=== PATIENT | female | born 1995 | race Caucasian/White ===

== ENCOUNTER 2016-08-27 13:21 | Outpatient (CLI) | payer OTHER | END 2016-08-27 13:22 | disposition home or self-care (01) | LOC: MADLABBHPM 13:21 | PROVIDERS: ATTEND Family Medicine | DX: Z34.83 Encounter for supervision of other normal pregnancy, third trimester (principal) | CPT/HCPCS: 36415; 87081 ==

== ENCOUNTER 2017-10-16 05:58 | Emergency (ER) | payer OTHER, SELFPAY ==
[2017-10-16 06:41] LABS: Bilirubin Negative (Negative); Blood, Urine Negative (Negative); Clarity Clear (Clear); Glucose, Urine (Dipstick) Negative (Negative); Leukocyte Trace (Negative); Nitrite Negative (Negative); Protein, Urine (Dipstick) Trace mg/dL (Neg-Trace); Urobilinogen 0.2 mg/dL (0.2-1.0)
[2017-10-16] MEDS ORDERED: traMADol HCl 50 MG TAB ONE (06:41)
[2017-10-16] MEDS ORDERED: Ketorolac Tromethamine 60 MG/2 ML VIAL ONE (06:42)
[2017-10-16 06:49] LABS: Amphetamine Not Detected (NotDetected); Barbiturates Screen Not Detected (NotDetected); Benzodiazepine Screen Not Detected (NotDetected); Cocaine Metabolite Screen Not Detected (NotDetected); Medtox Control Line Valid? VALID (VALID); Methadone Not Detected (NotDetected); Methamphetamine Not Detected (NotDetected); Opiate Screen Not Detected (NotDetected); Oxycodone Screen Not Detected (NotDetected); Phencyclidine (PCP) Not Detected (NotDetected); THC/Cannabinoid Screen Not Detected (NotDetected); Tricyclic Screen Not Detected (NotDetected)
[2017-10-16 06:51] LABS: RBC/HPF 0-3 HPF (0-3); Squamous Epithelial 0-3 HPF (0-3); WBC/HPF 0-3 HPF (0-3)
[2017-10-16 06:52] LABS: Bacteria/HPF Rare-Few HPF (None Seen)
--- NOTE | 2017-10-16 13:10 | CT ---
PRELIMINARY REPORT/[facility]/EMERGENTY AFTER-HOURS PROCEDURE CT Cervical Spine Without Intravenous Contrast EXAM DATE/TIME: Exam ordered 10/16/2017 6:33 AM CLINICAL HISTORY: 22 years old, female; Pain; Neck pain TECHNIQUE: Axial computed tomography images of the cervical spine without intravenous contrast. Coronal and sagi ttal reformatted images were created and reviewed. COMPARISON: No relevant prior studies available. FINDINGS: Vertebrae: No acute cervical spine fracture is identified. There is a reversal of the normal lordosis , related to positioning or spasm. Discs/spinal canal/neural foramina: The vertebral foramina are patent without gross evidence of fract ure. Typical artifact is present which limits evaluation of the spinal canal. No spinal canal stenosi s. Soft tissues: Normal. Lung apices: Unremarkable as visualized. IMPRESSION: No acute cervical spine fracture is demonstrated. Thank you for allowing us to participate in the care of your patient. Dictated and Authenticated by: Farhat Rdz MD 10/16/2017 6:58 AM Central Time ([place] & [place]) FINAL REPORT EMERGENT AFTER HOURS NONCONTRAST CT CERVICAL SPINE: DATE: 10/16/17. HISTORY: Neck pain. TECHNIQUE: Contiguous axial CT images are obtained through the cervical spine from the skull base to the level o f the T1 vertebral body. Sagittal and coronal reformatted images are provided. IMPRESSION: 1. No fracture or subluxation is seen involving the cervical spine. 2. Prevertebral soft tissues are within normal limits. 3. Straightening of the normal cervical lordotic curvature. 4. Findings are in agreement with the preliminary report by [facility]. POS: [facility]
--- NOTE | 2017-10-16 13:11 | CT ---
PRELIMINARY REPORT/[facility]/EMERGENTY AFTER-HOURS PROCEDURE CT Lumbar Spine Without Intravenous Contrast EXAM DATE/TIME: Exam ordered 10/16/2017 6:35 AM CLINICAL HISTORY: 22 years old, female; Pain; Low back pain TECHNIQUE: Axial computed tomography images of the lumbar spine without intravenous contrast. Coronal and sagitt al reformatted images were created and reviewed. COMPARISON: No relevant prior studies available. FINDINGS: Vertebrae: Normal. No acute fracture. Discs/spinal canal/neural foramina: No acute findings. No spinal canal stenosis. Soft tissues: Normal. IMPRESSION: Normal lumbar spine CT. Thank you for allowing us to participate in the care of your patient. Dictated and Authenticated by: Farhat Rdz MD 10/16/2017 7:03 AM Central Time ([place] & [place]) FINAL REPORT EMERGENT AFTER HOURS NONCONTRAST CT LUMBAR SPINE: DATE: 10/16/17. HISTORY: Chronic neck and back pain. Low back pain. IMPRESSION: 1. No fracture or subluxation is seen involving the lumbar spine. Vertebral body heights are within normal limits. 2. Central spinal canal and neural foramen are patent without disk bulge or disk herniation seen. 3. Findings are in agreement with the preliminary report by [facility]. POS: [facility]
== END 2017-10-16 08:27 | disposition home or self-care (01) ==
LOC: MADERS 05:58
DX: S16.1XXA Strain of muscle, fascia and tendon at neck level, initial encounter (principal); S39.012A Strain of muscle, fascia and tendon of lower back, initial encounter; S29.012A Strain of muscle and tendon of back wall of thorax, initial encounter; F32.9 Major depressive disorder, single episode, unspecified; F17.210 Nicotine dependence, cigarettes, uncomplicated; X50.0XXA Overexertion from strenuous movement or load, initial encounter; Y93.G1 Activity, food preparation and clean up
CPT/HCPCS: 72125; 72131; 80306; 81003; 81015; 96372; J1885

== ENCOUNTER 2020-04-04 14:31 | Emergency (ER) | payer SELFPAY ==
[2020-04-04] MEDS ORDERED: Lidocaine 1% w/Epinephrine 1:100K 20 ML VIAL ONE (15:06)
== END 2020-04-04 15:25 | disposition home or self-care (01) ==
LOC: MADERS 14:31
DX: L02.214 Cutaneous abscess of groin (principal); F32.9 Major depressive disorder, single episode, unspecified; F17.210 Nicotine dependence, cigarettes, uncomplicated
CPT/HCPCS: 10060

== ENCOUNTER 2021-01-21 11:38 | Emergency (ER) | payer SELFPAY ==
[2021-01-21] MEDS ORDERED: Ondansetron ODT 4 MG TAB ONE (12:00)
[2021-01-21] MEDS ORDERED: Sodium Chloride 0.9% 1,000 ML ONE (12:22)
[2021-01-21] MEDS ORDERED: Promethazine HCl 25 MG/ML VIAL ONE (12:23)
[2021-01-21 13:05] LABS: #Basophils 0.1 thou/uL (0.0-0.2); #Lymphocytes 1.6 thou/uL (1.20-3.40); #Monocytes 0.5 thou/uL (0.11-0.59); #Neutrophils 13.5 thou/uL (1.40-6.50); %Basophils 0.6 % (0.0-1.0); %Lymphocytes 10.1 % (21.0-51.0); %Monocytes 3.4 % (0.0-10.0); %Neutrophils 85.8 % (42.0-75.0); Hemoglobin 14.8 g/dL (12.0-16.0); Mean Corpuscular Hemoglobin 29.5 pg (27.0-31.0); Mean Corpuscular Volume 92.1 fL (78.0-98.0); Mean Platelet Volume 7.5 fL (7.4-10.4); Platelet Count 263 thou/uL (130-400); RBC Distribution Width 14.1 % (11.5-14.5); Red Blood Cell (RBC) Count 5.01 mill/uL (4.20-5.40); White Blood Cell (WBC) Count 15.7 thou/uL (4.8-10.8)
[2021-01-21 13:09] LABS: BHCG - Serum Negative (NEGATIVE); Pregs Control Background? CLEAR/WHITE (CLR/WHITE); Pregs Control Bar Appear? YES (CONTROL BAR)
[2021-01-21 13:15] LABS: ALT (SGPT) 10 U/L (8-55); AST (SGOT) 14 U/L (5-34); Albumin 4.1 g/dL (3.5-5.0); Alkaline Phosphatase 104 U/L (40-110); Anion Gap 16 mmol/L (10-20); BUN (Urea Nitrogen) 13 mg/dL (7.0-18.7); Bilirubin, Total 0.3 mg/dL (0.2-1.2); Calc. Creatinine Clearance 0 mL/min (70-130); Calcium 9.4 mg/dL (7.8-10.44); Carbon Dioxide 22 mmol/L (22-29); Chloride 105 mmol/L (98-107); Globulin 3.1 g/dL (2.4-3.5); Glucose 129 mg/dL (70-105); Lipase 20 U/L (8-78); Potassium 3.3 mmol/L (3.5-5.1); Protein, Total 7.2 g/dL (6.0-8.3); Sodium 140 mmol/L (136-145)
[2021-01-21 14:32] LABS: Bilirubin Negative (Negative); Blood, Urine Negative (Negative); Clarity Slightly Cloudy (Clear); Glucose, Urine (Dipstick) Negative (Negative); Ketone, Urine Trace mg/dL (Negative); Leukocyte Negative (Negative); Nitrite Negative (Negative); Protein, Urine (Dipstick) 100 mg/dL (Neg-Trace); Specific Gravity, Urine 1.015 (1.005-1.030); Urobilinogen 0.2 mg/dL (Less than 2)
[2021-01-21 14:37] LABS: RBC/HPF 0-3 HPF (0-3); pH, Urine Greater/Equal 9.0 (5.0-9.0)
[2021-01-21 14:38] LABS: Bacteria/HPF 2+ HPF (None Seen)
[2021-01-21 14:39] LABS: Pregnancy Test - Urine (BHCG) Negative (Negative); Pregu Control Background? CLEAR/WHITE (CLR/WHITE); Pregu Control Bar Appear? YES (CONTROL BAR); Specific Gravity 1.015 (1.002-1.036)
[2021-01-21] MEDS ORDERED: Potassium Chloride 20 MEQ TAB ONE (14:49)
[2021-01-21] MEDS ORDERED: cefTRIAXone\\ROCEPHIN 2 GM VIAL ONE (14:49)
[2021-01-21] MEDS ORDERED: Sodium Chloride 0.9% 100 ML ONE (14:49)
[2021-01-21 16:33] LABS: Amphetamine Not Detected (NotDetected); Barbiturates Screen Detected (NotDetected); Benzodiazepine Screen Not Detected (NotDetected); Cocaine Metabolite Screen Not Detected (NotDetected); Medtox Control Line Valid? VALID (VALID); Methadone Not Detected (NotDetected); Methamphetamine Not Detected (NotDetected); Opiate Screen Not Detected (NotDetected); Oxycodone Screen Not Detected (NotDetected); Phencyclidine (PCP) Not Detected (NotDetected); THC/Cannabinoid Screen Not Detected (NotDetected); Tricyclic Screen Not Detected (NotDetected)
[2021-01-21 16:34] LABS: Lactic Acid 1.5 mmol/L (0.5-2.2)
== END 2021-01-21 17:00 | disposition left against medical advice (07) ==
LOC: MADERS 11:38
DX: E87.6 Hypokalemia (principal); R11.2 Nausea with vomiting, unspecified; R10.9 Unspecified abdominal pain; F17.210 Nicotine dependence, cigarettes, uncomplicated
CPT/HCPCS: 74176; 80053; 80306; 81003; 81015; 81025; 83605; 83690; 84703; 85025; 87086; 96365; 96367; J0696; J2550; J3490; J7050; Q0162

== ENCOUNTER 2022-09-20 20:33 | Emergency (ER) | payer SELFPAY ==
[2022-09-20 21:22] LABS: Bilirubin Negative (Negative); Blood, Urine Trace (Negative); Clarity Clear (Clear); Glucose, Urine (Dipstick) Negative (Negative); Ketone, Urine Negative (Negative); Leukocyte Negative (Negative); Nitrite Positive (Negative); Protein, Urine (Dipstick) Negative (Neg-Trace); Urobilinogen 0.2 mg/dL (Less than 2)
[2022-09-20 21:32] LABS: Specific Gravity, Urine 1.031 (1.002-1.036)
[2022-09-20 21:33] LABS: Bacteria/HPF 3+ HPF (None Seen); RBC/HPF 0-3 HPF (0-3); Transitional Epithelial 0-3 HPF (None Seen)
== END 2022-09-20 22:00 | disposition home or self-care (01) ==
LOC: MADERS 20:33
DX: N39.0 Urinary tract infection, site not specified (principal); L73.9 Follicular disorder, unspecified; L01.00 Impetigo, unspecified; F17.210 Nicotine dependence, cigarettes, uncomplicated
CPT/HCPCS: 81003; 81015; 99283

== ENCOUNTER 2023-06-27 07:43 | Emergency (ER) | payer SELFPAY ==
[2023-06-27] MEDS ORDERED: Amoxicillin/Potassium Clav 875 MG TAB ONE (08:13)
[2023-06-27] MEDS ORDERED: Ondansetron ODT 4 MG TAB ONE (08:13)
[2023-06-27] MEDS ORDERED: Bupivacaine PF 0.5% 30 ML VIAL ONE (08:14)
[2023-06-27] MEDS ORDERED: Lidocaine 1% w/Epinephrine 1:100K 20 ML VIAL ONE (08:14)
== END 2023-06-27 08:43 | disposition home or self-care (01) ==
LOC: MADERS 07:43
DX: K08.89 Other specified disorders of teeth and supporting structures (principal); F17.210 Nicotine dependence, cigarettes, uncomplicated
CPT/HCPCS: Q0162; S0020

== ENCOUNTER 2024-01-24 20:52 | Emergency (ER) | payer SELFPAY ==
[2024-01-24] MEDS ORDERED: predniSONE 20 MG TAB ONE (21:57)
== END 2024-01-24 22:56 | disposition home or self-care (01) ==
LOC: MADERS 20:52
DX: L25.9 Unspecified contact dermatitis, unspecified cause (principal); F17.210 Nicotine dependence, cigarettes, uncomplicated
CPT/HCPCS: 99282; J7512

== ENCOUNTER 2024-02-08 22:20 | Emergency (ER) | payer SELFPAY ==
[2024-02-08 23:57] LABS: Bilirubin Small (Negative); Blood, Urine Negative (Negative); Clarity Clear (Clear); Glucose, Urine (Dipstick) Negative (Negative); Ketone, Urine Trace mg/dL (Negative); Leukocyte Negative (Negative); Nitrite Negative (Negative); Pregnancy Test - Urine (BHCG) Negative (Negative); Pregu Control Bar Appear? YES (CONTROL BAR); Protein, Urine (Dipstick) Trace mg/dL (Neg-Trace); Specific Gravity 1.025 (1.002-1.036); Specific Gravity, Urine 1.025 (1.005-1.030)
[2024-02-08 23:58] LABS: Pregu Control Background? CLEAR/WHITE (CLR/WHITE)
[2024-02-09 00:02] LABS: Bacteria/HPF Rare-Few HPF (None Seen); CAUTI Indications for Culture Fever or rigors; RBC/HPF 0-3 HPF (0-3); Urine Culture Reflex No No
[2024-02-09 00:23] LABS: SARS-CoV-2 E Target Negative; SARS-CoV-2 N2 Target Negative; SARS-CoV-2 NAA Rapid Test Not Detected (NotDetected); SARS-CoV-2 RdRP gene Negative
[2024-02-09] MEDS ORDERED: Doxycycline 100 MG CAP ONE (01:48)
== END 2024-02-09 02:15 | disposition home or self-care (01) ==
LOC: MADERS 22:20
DX: J22 Unspecified acute lower respiratory infection (principal); F17.210 Nicotine dependence, cigarettes, uncomplicated
CPT/HCPCS: 71045; 81001; 81025; 87804; U0002

== ENCOUNTER 2025-01-18 20:50 | Emergency (ER) | payer OTHER ==
[2025-01-18] MEDS ORDERED: Ketorolac Tromethamine 30 MG (1 mL) VIAL ONE (22:13)
[2025-01-18 22:40] LABS: #Basophils 0.2 thou/uL (0.0-0.2); #Eosinophils 0.3 thou/uL (0.0-0.7); #Lymphocytes 4.3 thou/uL (1.20-3.40); #Monocytes 0.6 thou/uL (0.11-0.59); #Neutrophils 8.9 thou/uL (1.40-6.50); %Basophils 1.1 % (0.0-1.0); %Eosinophils 2.3 % (0.0-10.0); %Lymphocytes 29.9 % (21.0-51.0); %Monocytes 4.2 % (0.0-10.0); %Neutrophils 62.5 % (42.0-75.0); Hematocrit 37.5 % (36.0-47.0); Hemoglobin 12.3 g/dL (12.0-16.0); Mean Corpuscular Hemoglobin 27.2 pg (27.0-31.0); Mean Corpuscular Volume 83.1 fl (78.0-98.0); Platelet Count 343 10x3/uL (130-400); Red Blood Cell (RBC) Count 4.52 mill/uL (4.20-5.40); White Blood Cell (WBC) Count 14.3 10x3/uL (4.8-10.8)
[2025-01-18 22:45] LABS: Glucose, Urine (Dipstick) Negative (Negative); Leukocyte Trace (Negative); Protein, Urine (Dipstick) Negative (Neg-Trace); Specific Gravity, Urine 1.015 (1.005-1.030)
[2025-01-18 22:48] LABS: Bacteria/HPF 3+ HPF (None Seen); CAUTI Indications for Culture Pelvic or flank pain; RBC/HPF 0-3 HPF (0-3); Urine Culture Reflex No No
[2025-01-18 22:53] LABS: ALT (SGPT) 11 U/L (Less than 34); AST (SGOT) 18 U/L (11-34); Albumin 3.9 g/dL (3.1-4.5); Alkaline Phosphatase 141 U/L (40-110); Anion Gap 17 mmol/L (10-20); BUN (Urea Nitrogen) 18 mg/dL (7.0-18.7); Bilirubin, Total 0.1 mg/dL (0.3-1.2); Calc. Creatinine Clearance 0 mL/min (70-130); Calcium 9.1 mg/dL (7.8-10.44); Carbon Dioxide 17 mmol/L (22-29); Chloride 109 mmol/L (98-107); Globulin 3.5 g/dL (2.4-3.5); Glucose 97 mg/dL (70-105); Potassium 3.9 mmol/L (3.5-5.1); Sodium 139 mmol/L (136-145)
[2025-01-18 23:09] LABS: Pregnancy Test - Urine (BHCG) Negative (Negative); Pregu Control Background? CLEAR/WHITE (CLR/WHITE); Pregu Control Bar Appear? YES (CONTROL BAR)
[2025-01-19] MEDS ORDERED: cefTRIAXone (ROCEPHIN) 500 MG VIAL ONE (00:30)
[2025-01-19 21:20] LABS: Chlamydia by PCR, Vaginal Swab Not Detected (NotDetected); GC by PCR, Vaginal Swab Not Detected (NotDetected)
== END 2025-01-19 00:45 | disposition home or self-care (01) ==
LOC: MADERS 20:50
DX: N73.9 Female pelvic inflammatory disease, unspecified (principal); N72 Inflammatory disease of cervix uteri; N93.9 Abnormal uterine and vaginal bleeding, unspecified; D25.9 Leiomyoma of uterus, unspecified
CPT/HCPCS: 80053; 81001; 81025; 85025; 87491; 87591; 96365; 96375; J0696; J1885